=== PATIENT | male | born 1995 ===

== ENCOUNTER 2017-09-19 08:21 | Day surgery (SDC) | payer BC ==
[~2017-09-19 08:21] MED LIST: Buffered Lidocaine 0.9% SYRIN* 5 ML/SYR SYRINGE INTRADERM ONE; Sodium Citrate/Citric Acid* 15 ML UDC PO ONE
[2017-09-19] MEDS ORDERED: Sodium Citrate/Citric Acid* 15 ML UDC ONE (08:33)
[2017-09-19] MEDS ORDERED: ceFAZolin 2 GM PREMIX (*) 2 GM/50 ML BAG IVPB ONE (08:34)
[2017-09-19] MEDS ORDERED: Bupivacaine 0.25% SDV* 30 ML ONE (10:10)
[2017-09-19] MEDS ORDERED: Ondansetron INJ* 2 MG/ML VIAL IV PRN (10:13)
[2017-09-19] MEDS ORDERED: Ketorolac INJ* 30 MG/ML 1 ML VIAL IV PRN (10:13)
[2017-09-19] MEDS ORDERED: fentaNYL* 50 MCG/ML 2 ML VIAL (100 MCG VIAL) IV PRN (10:13)
[2017-09-19] MEDS ORDERED: Naloxone* 0.4 MG/ML 1 ML VIAL IV PRN (10:13)
[2017-09-19] MEDS ORDERED: Propofol* 10 MG/ML 20 ML BTL IV PUSH ONE ×2 (10:15→12:06)
[2017-09-19] MEDS ORDERED: Lidocaine 2% PF * 5 ML VIAL ONE (10:15)
[2017-09-19] MEDS ORDERED: fentaNYL* 50 MCG/ML 2 ML VIAL (100 MCG VIAL) ONE (10:40)
[2017-09-19 13:36] VITALS: BP 123/67
--- NOTE | 2017-09-20 15:38 | RAD ---
INDICATION: Right thumb ORIF COMPARISON: September 10, 2007 FINDINGS: 30 seconds of fluoroscopy were provided for the orthopedics department. Fluoroscopic spot imaging of the right thumb were obtained for operative control. CPT II Codes: G9500 (fluoro time doc)
--- NOTE | 2017-09-24 14:44 | OP ---
DATE OF OPERATION: 09/19/17 - [facility] DATE OF : 89 SURGEON: Angel Sifuentes MD ROUGH ROUNDER MACHINE: JINNY Bui ANESTHESIA: General. PRE-OP DIAGNOSIS: Right thumb displaced proximal phalanx ulnar condylar fracture. POST-OP DIAGNOSIS: Right thumb displaced proximal phalanx ulnar condylar fracture. OPERATIVE PROCEDURE: Open reduction and internal fixation right thumb displaced ulnar condylar articular fracture. INDICATIONS: Irvin fractured the thumb on 09/07/17 a little over 2 weeks before surgery. I told him I did not think we were likely to be able to get the fracture reduced disclosed, understood almost certainly we have to open it given the amount of displacement of the articular surface I thought that would probably worth it. He agreed and wanted to proceed. ESTIMATED BLOOD LOSS: 2 mL. COMPLICATIONS: None. FINDINGS: See above and below. DESCRIPTION OF PROCEDURE: Irvin was seen in the preoperative area. The correct side, site, and procedure were identified. We came back to the operating room. The arm was prepped and draped in the usual fashion. The arm was exsanguinated and the tourniquet was inflated. I made an L-shaped incision over the dorsum of the thumb in line with the proximal phalanx and then T'd back distally just distal to the IP joint. Dissection was carried down. I came just ulnar to the extensor tendon and mobilized the tendon and retracted it radially and made a capsulotomy and released the capsule off of the ulnar side of the joint. The condylar fracture was very stuck down, it took quite sometime, but ultimately I was able to get it mobilized using the [place] blade. The collateral ligament was indeed attached to the condyle. Once I was able to mobilize it, I was able to reduce it and then I performed my fixation with #3 K-wires. These were all 0.8 mm K-wires of the [employer] variable angle handset. Additionally, I had used 1.6 mm K-wire from posterior anterior, this was removed to the end. Once I had the joint reduced and pinned into place, it was holding very nicely. I therefore irrigated out the wound. The capsule was closed to the extent possible. The skin was closed with 4-0 Nylon suture. Wound was dressed with Xeroform, 4x4, sterile Webril and pins have been bent and clipped and padded. Thumb spica splint was applied. He was then woken up and taken to recovery room in stable condition. [id number]/[facility] #: [id number] ZAINA
== END 2017-09-19 12:28 | disposition home or self-care (01) ==
LOC: OREAST 08:21
PROVIDERS: ATTEND Orthopaedic Surgery Hand Surgery
DX: S62.511A Displaced fracture of proximal phalanx of right thumb, initial encounter for closed fracture (principal); W22.8XXA Striking against or struck by other objects, initial encounter; Y93.89 Activity, other specified; Y92.9 Unspecified place or not applicable; Z68.41 Body mass index [BMI] 40.0-44.9, adult
CPT/HCPCS: 76000; A9270-GY; C1776; J0690; J2704; J3010